=== PATIENT | male | born 1960 | race Caucasian/White ===

== ENCOUNTER 2016-12-04 08:30 | Outpatient (CLI) | payer MEDICARE, MEDICAID | END 2016-12-04 08:31 | disposition home or self-care (01) | DX: I10 Essential (primary) hypertension (principal); D64.9 Anemia, unspecified; Z12.5 Encounter for screening for malignant neoplasm of prostate; E03.9 Hypothyroidism, unspecified | CPT/HCPCS: 36415; 80048; 82728; 84439; 84443; 85025; G0103 ==

== ENCOUNTER 2017-01-09 09:45 | Outpatient (CLI) | payer MEDICARE, MEDICAID | END 2017-01-09 09:46 | disposition home or self-care (01) | DX: I25.5 Ischemic cardiomyopathy (principal) ==

== ENCOUNTER 2017-02-12 08:00 | Outpatient (CLI) | payer MEDICARE, MEDICAID | END 2017-02-12 23:59 | DX: R80.9 Proteinuria, unspecified (principal) ==

== ENCOUNTER 2017-02-20 11:41 | Outpatient (CLI) | payer MEDICARE, MEDICAID | END 2017-02-20 11:42 | disposition home or self-care (01) | DX: R80.9 Proteinuria, unspecified (principal); E83.30 Disorder of phosphorus metabolism, unspecified ==

== ENCOUNTER 2017-03-06 08:11 | Outpatient (CLI) | payer MEDICARE, MEDICAID ==
--- NOTE | 2017-03-06 16:13 | CT Report ---
CT OF CHEST WITHOUT CONTRAST: 03/06/2017 CLINICAL INDICATION: A 56-year-old asymptomatic patient with [id number] history of smoking, current smoker. TECHNIQUE: Axial CT images of the chest were obtained without intravenous contrast, utilizing low dos e screening technique. No previous CT is available for comparison. FINDINGS: The heart and great vessels demonstrate atherosclerotic calcifications and postoperative c hanges of previous cardiac surgery. A left subclavian pacemaker is present. No hilar or mediastinal l ymphadenopathy is present. The lungs demonstrate calcified granulomas bilaterally. No suspicious nonc alcified pulmonary nodule or mass lesion is identified. No effusion or pneumothorax is present. Emphy sematous changes and patchy air trapping are noted. The osseous structures demonstrate degenerative a nd postsurgical changes. Limited evaluation of upper abdominal structures demonstrates normal adrenal glands. IMPRESSION: EMPHYSEMA. 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 NO SUSPICIOUS PULMONARY NODULE OR MASS LESION IS SEEN. RECOMMENDATION: CONTINUE ANNUAL SCREENING WITH LOW DOSE CHEST CT IN TWELVE MONTHS. LUNG RADS CATEGORY 2-BENIGN FINDINGS. In accordance with CT protocol optimization, one or more of the following dose reduction techniques w ere utilized for this exam: automated exposure control, adjustment of mA and/or KV based on patient size, or use of iterative reconstructive technique. JOB #: [id number] EXT JOB #:[id number]
== END 2017-03-06 08:12 | disposition home or self-care (01) ==
LOC: DI 08:11
PROVIDERS: ATTEND Physician Assistant Medical
DX: J43.9 Emphysema, unspecified (principal); Z12.2 Encounter for screening for malignant neoplasm of respiratory organs; F17.210 Nicotine dependence, cigarettes, uncomplicated; N18.3 Chronic kidney disease, stage 3 (moderate)
CPT/HCPCS: 76770; G0297

== ENCOUNTER 2017-03-06 08:13 | Outpatient (CLI) | payer MEDICARE, MEDICAID ==
--- NOTE | 2017-03-06 14:00 | Ultrasound Report ---
RETROPERITONEAL ULTRASOUND: 03/06/2017 CLINICAL INDICATION: Stage III kidney disease. TECHNIQUE: Real-time sonographic vascular imaging was performed by the export freight specialist through the retrop eritoneum utilizing both color-flow and Doppler spectral analysis. Multiple customer sales representative static im ages were saved for review. FINDINGS: The right kidney measures 10.0 x 5.2 x 5.1 cm. Renal cortical echotexture is normal. No hy dronephrosis or perinephric collection is present. The left kidney measures 9.9 x 4.9 x 4.4 cm. Cortical cysts are present, measuring up to 1.1 cm. No h ydronephrosis or perinephric collection is present. Prevoid, the bladder measures 8.1 x 7.1 x 6.9 cm, yielding a prevoid volume of 208 mL. Bilateral uret eral jets are present. No significant postvoid residual is present. IMPRESSION: INCIDENTAL LEFT RENAL CYSTS. NO HYDRONEPHROSIS. JOB #: [id number] EXT JOB #:[id number]
== END 2017-03-06 08:14 | disposition home or self-care (01) ==
LOC: DI 08:13
PROVIDERS: ATTEND Internal Medicine Nephrology
DX: N18.3 Chronic kidney disease, stage 3 (moderate) (principal); F17.210 Nicotine dependence, cigarettes, uncomplicated
CPT/HCPCS: 76770

== ENCOUNTER 2017-03-19 09:16 | Outpatient (CLI) | payer MEDICARE, MEDICAID | END 2017-03-19 09:17 | disposition home or self-care (01) | DX: R73.09 Other abnormal glucose (principal); E78.5 Hyperlipidemia, unspecified; I10 Essential (primary) hypertension; E03.9 Hypothyroidism, unspecified ==

== ENCOUNTER 2017-04-10 09:50 | Outpatient (CLI) | payer MEDICARE, MEDICAID ==
[2017-04-10 10:34] LABS: BASOPHILS # (AUTO) 0.1 10^3/uL (0.0-0.1); EOSINOPHILS # (AUTO) 0.3 10^3/uL (0.0-0.7); EOSINOPHILS % (AUTO) 2.6 %; HCT - HEMATOCRIT 43.7 % (42.0-52.0); HGB - HEMOGLOBIN 15.1 g/dL (14.0-18.0); LYMPHOCYTES # (AUTO) 1.7 10^3/uL (1.5-3.5); LYMPHOCYTES % (AUTO) 17.4 %; MEAN CORPUSCULAR HEMOGLOBIN 29.5 pg (27.0-31.0); MEAN CORPUSCULAR HGB CONC 34.5 g/dL (32.0-36.0); MEAN CORPUSCULAR VOLUME 85.4 fL (80.0-94.0); MEAN PLATELET VOLUME 9.5 fL (7.4-11.4); MONOCYTES # (AUTO) 1.1 10^3/uL (0.0-1.0); MONOCYTES % (AUTO) 11.2 %; NEUTROPHILS # (AUTO) 6.7 10^3/uL (1.5-6.6); NEUTROPHILS % (AUTO) 67.8 %; RED BLOOD COUNT 5.12 10^6/uL (4.70-6.10); RED CELL DISTRIBUTION WIDTH 16.8 % (12.0-15.0); UNCORRECTED WHITE BLOOD COUNT 9.8 x10^3/uL; WHITE BLOOD COUNT 9.8 x10^3/uL (4.8-10.8)
[2017-04-10 10:48] LABS: CALCIUM 9.3 mg/dL (8.5-10.3); CREATININE 1.6 mg/dL (0.6-1.2); PHOSPHORUS 3.6 mg/dL (2.5-4.6); POTASSIUM 4.1 mmol/L (3.5-5.0); URIC ACID 8.1 mg/dL (2.6-7.2)
[2017-04-13 05:13] LABS: LAMBDA LIGHT CHAINS 174 mg/dL (91-240)
[2017-04-14 15:42] LABS: TEST CODE 549RWD (())
[2017-04-14 17:31] LABS: COMPLEMENT COMPONENT C3C 130 mg/dL (90-180); COMPLEMENT COMPONENT C4C 18 mg/dL (16-47)
[2017-04-14 23:16] LABS: ALPHA 1 GLOBULIN 0.3 g/dL (0.2-0.3); ALPHA 2 GLOBULIN 0.7 g/dL (0.5-0.9); BETA 1 GLOBULIN 0.6 g/dL (0.4-0.6); BETA 2 GLOBULIN 0.3 g/dL (0.2-0.5); GAMMA GLOBULIN 1.2 g/dL (0.8-1.7)
[2017-04-20 08:33] LABS: TEST RESULT AMENDED (())
== END 2017-04-10 09:51 | disposition home or self-care (01) ==
LOC: LAB 09:50
PROVIDERS: ATTEND Internal Medicine Nephrology
DX: M31.30 Wegener's granulomatosis without renal involvement (principal); D70.9 Neutropenia, unspecified; E83.30 Disorder of phosphorus metabolism, unspecified; N25.81 Secondary hyperparathyroidism of renal origin; R80.9 Proteinuria, unspecified; D47.2 Monoclonal gammopathy; M10.00 Idiopathic gout, unspecified site
CPT/HCPCS: 36415; 80048; 81599; 82570; 83883; 83970; 84100; 84155; 84156; 84165; 84550; 85025; 86021; 86160

== ENCOUNTER 2017-04-20 07:21 | Outpatient (CLI) | payer MEDICARE, MEDICAID ==
--- NOTE | 2017-04-20 12:36 | Ultrasound Report ---
RIGHT UPPER QUADRANT ULTRASOUND: 04/20/2017 CLINICAL INDICATION: Abnormal LFTs. TECHNIQUE: Real-time scanning was performed with ocean import representative static images obtained. FINDINGS: The liver measures 11.8 cm. Hepatic echogenicity appears increased, suggestive of fatty i nfiltration. No focal parenchymal lesion or intrahepatic biliary dilatation is seen. The common daisha e duct measures 5 mm. The gallbladder is unremarkable. The right kidney measures 10.7 cm, and demon strates no hydronephrosis. No free fluid is present. IMPRESSION: MILDLY ECHOGENIC LIVER, SUGGESTIVE OF FATTY INFILTRATION. OTHERWISE, NORMAL RIGHT UPPER QUADRANT ULTRASOUND. JOB #: [id number] EXT JOB #:[id number]
== END 2017-04-20 07:22 | disposition home or self-care (01) ==
LOC: DI 07:21
PROVIDERS: ATTEND Physician Assistant Medical
DX: R94.5 Abnormal results of liver function studies (principal)
CPT/HCPCS: 76705

== ENCOUNTER 2017-04-20 07:22 | Outpatient (CLI) | payer MEDICARE, MEDICAID ==
--- NOTE | 2017-04-20 12:47 | CT Report ---
CT CERVICAL SPINE WITHOUT CONTRAST: 04/20/2017 CLINICAL INDICATION: Cervical disc disorder. TECHNIQUE: Axial CT images of the cervical spine were obtained without contrast. In accordance with CT protocol optimization, one or more of the following dose reduction techniques were utilized for this exam: automated exposure control, adjustment of mA and/or KV based on patient size, or use of iterative reconstructive technique. No previous CT is available for comparison. FINDINGS: The cervical vertebral bodies demonstrate normal height and alignment. Degenerative disc and facet disease is present, with disk space narrowing worst at C5-6. The C2-3, C3-4, and C4-5 disks are unremarkable. At C5-6, there is a combination of disk-osteophyte and uncovertebral hypertrophy , producing bilateral foraminal narrowing. No significant spinal stenosis results. The C6-7 disc demonstrates minimal bulge, without significant spinal or foraminal narrowing. The C7-T1 disc is unremarkable. No prevertebral soft tissue swelling is seen. Limited evaluation of the lung apices demonstrates emphysema. IMPRESSION: DEGENERATIVE CHANGES, PRODUCING BILATERAL FORAMINAL NARROWING AT C5 -6. NO SIGNIFICANT SPINAL STENOSIS. JOB #: [id number] EXT JOB #: [id number] CHER
== END 2017-04-20 07:23 | disposition home or self-care (01) ==
LOC: DI 07:22
PROVIDERS: ATTEND Family Medicine
DX: M50.30 Other cervical disc degeneration, unspecified cervical region (principal); M47.892 Other spondylosis, cervical region; R94.5 Abnormal results of liver function studies
CPT/HCPCS: 72125; 76705

== ENCOUNTER 2017-05-28 09:27 | Outpatient (CLI) | payer MEDICARE, MEDICAID ==
[2017-05-28 09:58] LABS: CALCIUM 9.2 mg/dL (8.5-10.3); CREATININE 2.1 mg/dL (0.6-1.2); POTASSIUM 4.1 mmol/L (3.5-5.0)
== END 2017-05-28 09:28 | disposition home or self-care (01) ==
LOC: LAB 09:27
PROVIDERS: ATTEND Internal Medicine Nephrology
DX: N05.9 Unspecified nephritic syndrome with unspecified morphologic changes (principal)
CPT/HCPCS: 36415; 80048

== ENCOUNTER 2017-06-15 08:04 | Outpatient (CLI) | payer MEDICARE, MEDICAID | END 2017-06-15 08:05 | disposition home or self-care (01) | LOC: LAB.WCP 08:04 | PROVIDERS: ATTEND Physician Assistant Medical | DX: E03.9 Hypothyroidism, unspecified (principal) | CPT/HCPCS: 36415; 84443 ==

== ENCOUNTER 2017-07-06 08:00 | Outpatient (CLI) | payer MEDICARE, MEDICAID ==
[2017-07-06 15:16] LABS: CALCIUM 9.2 mg/dL (8.5-10.3); CREATININE 1.7 mg/dL (0.6-1.2); POTASSIUM 3.8 mmol/L (3.5-5.0)
== END 2017-07-06 08:01 | disposition home or self-care (01) ==
LOC: LAB.WCP 08:00
PROVIDERS: ATTEND Registered Nurse
DX: I25.5 Ischemic cardiomyopathy (principal)
CPT/HCPCS: 36415; 80048

== ENCOUNTER 2017-07-13 10:41 | Outpatient (CLI) | payer MEDICARE, MEDICAID ==
--- NOTE | 2017-07-13 13:33 | Mammography Report ---
DIGITAL DIAGNOSTIC BILATERAL MAMMOGRAM: 07/13/2017 CLINICAL INDICATION: Tender palpable abnormality left retroareolar region. COMPARISON: 02/28/2010. TECHNIQUE: Bilateral CC and MLO views. FINDINGS: The breasts again demonstrate asymmetric gynecomastia, increased on the left. A small amou nt of gynecomastia is seen on the right. No suspicious masses, clustered microcalcifications, or lolita ons of architectural distortion are identified. IMPRESSION: ASYMMETRIC GYNECOMASTIA. RECOMMENDATION: CONTINUED CLINICAL EVALUATION. BIRADS CATEGORY 2-BENIGN FINDINGS. STANDARD QUALIFYING STATEMENTS 1. This examination was reviewed with the aid of Computer-Aided Detection (CAD). 2. A negative or benign imaging report should not delay biopsy if clinically suspicious findings are present. Consider surgical consultation if warranted. More than 5% of cancers are not identified by i maging. 3. Dense breasts may obscure an underlying neoplasm. JOB #: [id number] EXT JOB #:[id number]
== END 2017-07-13 10:42 | disposition home or self-care (01) ==
LOC: DI 10:41
PROVIDERS: ATTEND Physician Assistant Medical
DX: N62 Hypertrophy of breast (principal)
CPT/HCPCS: 77066

== ENCOUNTER 2017-11-12 08:00 | Outpatient (CLI) | payer MEDICARE, MEDICAID ==
[2017-11-12 12:27] LABS: BASOPHILS % (AUTO) 0.6 %; EOSINOPHILS # (AUTO) 0.2 10^3/uL (0.0-0.7); EOSINOPHILS % (AUTO) 2.3 %; HGB - HEMOGLOBIN 11.6 g/dL (14.0-18.0); LYMPHOCYTES # (AUTO) 1.5 10^3/uL (1.5-3.5); LYMPHOCYTES % (AUTO) 17.3 %; MEAN CORPUSCULAR HEMOGLOBIN 24.6 pg (27.0-31.0); MEAN CORPUSCULAR HGB CONC 31.8 g/dL (32.0-36.0); MEAN CORPUSCULAR VOLUME 77.4 fL (80.0-94.0); MEAN PLATELET VOLUME 8.5 fL (7.4-11.4); MONOCYTES # (AUTO) 1.3 10^3/uL (0.0-1.0); MONOCYTES % (AUTO) 15.4 %; NEUTROPHILS # (AUTO) 5.5 10^3/uL (1.5-6.6); NEUTROPHILS % (AUTO) 64.4 %; PLT - PLATELET COUNT 191 10^3/uL (130-450); RED BLOOD COUNT 4.72 10^6/uL (4.70-6.10); RED CELL DISTRIBUTION WIDTH 18.5 % (12.0-15.0); WHITE BLOOD COUNT 8.6 x10^3/uL (4.8-10.8)
[2017-11-12 12:50] LABS: ALBUMIN 3.5 g/dL (3.2-5.5); ALBUMIN/GLOBULIN RATIO 0.9 (1.0-2.2); ALKALINE PHOSPHATASE 94 IU/L (42-121); ALT ALANINE AMINOTRANSFERASE 338 IU/L (10-60); AST ASPARTATE AMINOTRANSFERASE 113 IU/L (10-42); BILIRUBIN,TOTAL 1.3 mg/dL (0.2-1.0); BUN - BLOOD UREA NITROGEN 35 mg/dL (6-20); CALCIUM 8.5 mg/dL (8.5-10.3); CARBON DIOXIDE - CO2 28 mmol/L (21-32); CHLORIDE 99 mmol/L (101-111); CREATININE 1.8 mg/dL (0.6-1.2); GFR - MDRD 39 (>89); GLUCOSE 105 mg/dL (70-100); SODIUM 133 mmol/L (135-145); TOTAL PROTEIN 7.2 g/dL (6.7-8.2)
[2017-11-12 12:53] LABS: THYROID STIMULATING HORMONE 0.77 uIU/mL (0.34-5.60)
[2017-11-12 12:59] LABS: FERRITIN 89.5 ng/mL (23.9-336.2)
[2017-11-12 13:02] LABS: FOLATE 15.7 ng/mL (5.90 - >24.8)
== END 2017-11-12 08:01 | disposition home or self-care (01) ==
LOC: LAB.WCP 08:00
PROVIDERS: ATTEND Physician Assistant Medical
DX: R74.8 Abnormal levels of other serum enzymes (principal); D64.9 Anemia, unspecified
CPT/HCPCS: 36415; 80053; 82306; 82607; 82728; 82746; 84443; 85025

== ENCOUNTER 2017-11-19 08:00 | Outpatient (CLI) | payer MEDICARE, MEDICAID ==
[2017-11-19 12:52] LABS: BASOPHILS # (AUTO) 0.1 10^3/uL (0.0-0.1); BASOPHILS % (AUTO) 1.1 %; EOSINOPHILS # (AUTO) 0.1 10^3/uL (0.0-0.7); EOSINOPHILS % (AUTO) 1.6 %; HGB - HEMOGLOBIN 12.9 g/dL (14.0-18.0); LYMPHOCYTES # (AUTO) 1.4 10^3/uL (1.5-3.5); LYMPHOCYTES % (AUTO) 16.7 %; MEAN CORPUSCULAR HEMOGLOBIN 24.4 pg (27.0-31.0); MEAN CORPUSCULAR HGB CONC 30.7 g/dL (32.0-36.0); MEAN CORPUSCULAR VOLUME 79.5 fL (80.0-94.0); MONOCYTES # (AUTO) 1.1 10^3/uL (0.0-1.0); NEUTROPHILS # (AUTO) 5.8 10^3/uL (1.5-6.6); NEUTROPHILS % (AUTO) 67.6 %; PLT - PLATELET COUNT 262 10^3/uL (130-450); RED BLOOD COUNT 5.27 10^6/uL (4.70-6.10); WHITE BLOOD COUNT 8.6 x10^3/uL (4.8-10.8)
[2017-11-19 14:03] LABS: BILIRUBIN,TOTAL 0.5 mg/dL (0.2-1.0); CALCIUM 9.2 mg/dL (8.5-10.3); CREATININE 1.3 mg/dL (0.6-1.2); TOTAL PROTEIN 7.9 g/dL (6.7-8.2)
== END 2017-11-19 08:01 | disposition home or self-care (01) ==
LOC: LAB.WCP 08:00
PROVIDERS: ATTEND Physician Assistant Medical
DX: R74.8 Abnormal levels of other serum enzymes (principal); D50.9 Iron deficiency anemia, unspecified
CPT/HCPCS: 36415; 80053; 83540; 84466; 85025

== ENCOUNTER 2018-03-08 08:00 | Outpatient (CLI) | payer MEDICARE, MEDICAID ==
[2018-03-08 13:45] LABS: CALCIUM 8.8 mg/dL (8.5-10.3); CREATININE 1.7 mg/dL (0.6-1.2)
[2018-03-08 13:46] LABS: BASOPHILS # (AUTO) 0.1 10^3/uL (0.0-0.1); BASOPHILS % (AUTO) 1.2 %; EOSINOPHILS # (AUTO) 0.4 10^3/uL (0.0-0.7); EOSINOPHILS % (AUTO) 3.7 %; HGB - HEMOGLOBIN 13.7 g/dL (14.0-18.0); LYMPHOCYTES # (AUTO) 2.1 10^3/uL (1.5-3.5); LYMPHOCYTES % (AUTO) 20.1 %; MEAN CORPUSCULAR HEMOGLOBIN 27.3 pg (27.0-31.0); MEAN CORPUSCULAR HGB CONC 33.1 g/dL (32.0-36.0); MEAN CORPUSCULAR VOLUME 82.5 fL (80.0-94.0); MEAN PLATELET VOLUME 9.9 fL (7.4-11.4); MONOCYTES # (AUTO) 1.1 10^3/uL (0.0-1.0); MONOCYTES % (AUTO) 10.5 %; NEUTROPHILS # (AUTO) 6.6 10^3/uL (1.5-6.6); NEUTROPHILS % (AUTO) 64.5 %; PLT - PLATELET COUNT 190 10^3/uL (130-450); RED BLOOD COUNT 5.02 10^6/uL (4.70-6.10); RED CELL DISTRIBUTION WIDTH 20.4 % (12.0-15.0); WHITE BLOOD COUNT 10.3 x10^3/uL (4.8-10.8)
== END 2018-03-08 08:01 ==
LOC: LAB.WCP 08:00
PROVIDERS: ATTEND Nurse Practitioner Adult Health
DX: R00.0 Tachycardia, unspecified (principal); I25.5 Ischemic cardiomyopathy
CPT/HCPCS: 36415; 80048; 85025

== ENCOUNTER 2018-03-25 08:02 | Outpatient (CLI) | payer MEDICARE, MEDICAID ==
[2018-03-25] MEDS ORDERED: SINCALIDE 5 MCG VIAL ONE (11:23)
[2018-03-25] MEDS ORDERED: SODIUM CHLORIDE 0.9% IV ONE (12:34)
[2018-03-25] MEDS ORDERED: SINCALIDE IV ONE (12:34)
--- NOTE | 2018-03-25 14:42 | Nuclear Medicine Report ---
EXAM: HEPATOBILIARY SCAN WITH CCK/KINEVAC ADMINISTRATION EXAM DATE: 03/25/2018 12:36 PM. CLINICAL HISTORY: ABDOMINAL PAIN, RUQ. COMPARISON: Ultrasound exam dated 04/20/2017. TECHNIQUE: Following the intravenous administration of 5.4 mCi of Tc99m Mebrofenin, a hepatobiliary s can was done centered on the liver and gallbladder in multiple sequential images and projections. Following the intravenous administration of 1.75 mcg of CCK/ Kinevac over the course of approximately 60 minutes, dynamic imaging was done and the gallbladder ejection fraction was calculated. FINDINGS: Normal extraction of tracer from the blood pool indicating normal hepatocellular function. The liver size and shape is grossly within normal limits. There is activity visualized within the bile ducts, gallbladder, and small bowel within the first michaelle r. With CCK administration, the gallbladder demonstrates an effective contraction. The gallbladder eject ion fraction is calculated to be 89%, well above the lower limit of normal of 38% for a 60-minute inj ection. The patient did not report symptoms after CCK administration. No evidence of enteric reflux into the stomach. No significant collection of tracer remaining in the common bile duct by the end of the study. IMPRESSION: 1. Patent cystic duct. 2. Patent common bile duct. 3. Negative for acute or chronic cholecystitis. 4. No enterogastric bile reflux. 5. Gallbladder ejection fraction of 89%. RISHI Referring Provider Line: [phone] SITE ID: [id number]
== END 2018-03-25 08:03 | disposition home or self-care (01) ==
LOC: DI 08:02
PROVIDERS: ATTEND Physician Assistant Medical
DX: R10.11 Right upper quadrant pain (principal)
CPT/HCPCS: 78227; A9537; J7040

== ENCOUNTER 2018-03-29 08:00 | Outpatient (CLI) | payer MEDICARE, MEDICAID ==
[2018-03-29 14:13] LABS: ALBUMIN 3.9 g/dL (3.2-5.5); BILIRUBIN,TOTAL 0.7 mg/dL (0.2-1.0); CALCIUM 9.5 mg/dL (8.5-10.3); TOTAL PROTEIN 7.9 g/dL (6.7-8.2)
[2018-03-29 14:39] LABS: CHOL/HDL RATIO 3.2 (<5.0); CHOLESTEROL 140 mg/dL; HDL CHOLESTEROL 44 mg/dL; LDL CHOLESTEROL,CALCULATED 52 mg/dL; LDL/HDL RATIO 1.2 (<3.6); VLDL CHOLESTEROL 44 mg/dL
== END 2018-03-29 08:01 | disposition home or self-care (01) ==
LOC: LAB.WCP 08:00
PROVIDERS: ATTEND Physician Assistant Medical
DX: R10.11 Right upper quadrant pain (principal); E78.5 Hyperlipidemia, unspecified
CPT/HCPCS: 36415; 80053; 80061; 83721

== ENCOUNTER 2018-05-31 11:25 | Outpatient (CLI) | payer MEDICARE, MEDICAID ==
[2018-05-31 15:07] LABS: CALCIUM 8.9 mg/dL (8.5-10.3); CREATININE 2.5 mg/dL (0.6-1.2)
== END 2018-05-31 11:26 | disposition home or self-care (01) ==
LOC: LAB.R 11:25
PROVIDERS: ATTEND Family Medicine
DX: I25.10 Atherosclerotic heart disease of native coronary artery without angina pectoris (principal)
CPT/HCPCS: 80048